=== PATIENT | female | born 1980 | race Caucasian/White ===

== ENCOUNTER 2016-09-23 11:06 | Emergency (ER) | payer BC ==
[2016-09-23 11:28] VITALS: TEMP 99.2
--- NOTE | 2016-09-23 11:36 | ED.PDOC ---
History of Present Illness - General Chief Complaint: Abdominal Pain Stated Complaint: diarrhea,abd pain Time Seen by Provider: 09/23/16 11:09 Source: patient Exam Limitations: no limitations - History of Present Illness Initial Comments: This 36 y/o female with history of dm2 and htn stated that she started having dull intermittent abdominal pains 15 hours ago after eating supper last night stating able to sleep last night but this am had one watery diarrhea with worsening of abdominal pains.She was seen initially at her md's office but advised to be checked here. Timing/Duration: other - 15 hours ago Severity: moderate Improving Factors: nothing Worsening Factors: nothing Associated Symptoms: loss of appetite Allergies/Adverse Reactions: Allergies Cefazolin [From Ancef] Allergy (Verified 10/14/14 18:38) Ciprofloxacin [From Cipro] Allergy (Verified 09/23/16 11:29) Penicillins Allergy (Verified 09/23/16 11:29) Home Medications: Ambulatory Orders Amlodipine Besylate 2.5 mg PO DAILY 02/06/13 Furosemide [Lasix] 20 mg PO DAILY 02/06/13 Lisinopril 10 mg PO BID 02/06/13 Omeprazole [Prilosec] 40 mg PO DAILY 02/06/13 SAXaglipitin [Onglyza] 5 mg PO DAILY 02/06/13 Spironolactone [Aldactone] 25 mg PO DAILY 02/06/13 Colestipol HCl 1 gm PO DAILY 09/23/16 Estradiol 0.1 mg TD WKLY 09/23/16 Hyoscyamine Sulfate [Levsin] 0.125 mg PO Q6HRS PRN #14 tab 09/23/16 Tramadol HCl 50 mg PO Q6HRS PRN #14 tab 09/23/16 Review of Systems - Review of Systems Constitutional: States: no symptoms reported EENTM: States: no symptoms reported Respiratory: States: no symptoms reported Cardiology: States: no symptoms reported Gastrointestinal/Abdominal: States: see HPI Genitourinary: States: no symptoms reported Musculoskeletal: States: no symptoms reported Skin: States: no symptoms reported Neurological: States: no symptoms reported Endocrine: States: no symptoms reported Hematologic/Lymphatic: States: no symptoms reported Past Medical History (General) - Patient Medical History Hx Congestive Heart Failure: No Hx Hypertension: Yes Hx Diabetes: Yes Hx Cancer: No Hx Hepatitis C: No Surgical History: cholecystectomy, Hysterectomy Other Surgeries:: hysterectomy,lithotripsy,CTS,ankle,knee - Vaccination History Hx Influenza Vaccination: No - Social History Hx Tobacco Use: No Hx Alcohol Use: No - Activities of Daily Living Patient Lives Alone: - family - Female History Patient is a Female of Child Bearing Age (10 -59 yrs old): No Patient : No Family Medical History - Family History Father Living Status: Still Living Hx Family Hypertension: Yes Hx Family Diabetes: Yes Physical Exam - Physical Exam General Appearance: Alert, No apparent distress Eye Exam: bilateral normal Ears, Nose, Throat: hearing grossly normal, normal ENT inspection, normal pharynx Neck: non-tender, full range of motion, supple Respiratory: chest non-tender, lungs clear, normal breath sounds, no respiratory distress Cardiovascular/Chest: normal peripheral pulses, regular rate, rhythm, no edema, no gallop, no JVD, no murmur Peripheral Pulses: radial,right: 2+, radial,left: 2+ Gastrointestinal/Abdominal: normal bowel sounds, soft, no organomegaly, tenderness - mid abdomen no peritoneal signs Back Exam: normal inspection, no CVA tenderness, no vertebral tenderness Extremity: normal range of motion, non-tender Neurologic: no motor/sensory deficits, alert, normal mood/affect, oriented x 3 Skin Exam: normal color, warm/dry Lymphatic: no adenopathy Progress - Results/Orders Results/Orders: 09/23/16 11:38 URINALYSIS Stat 09/23/16 11:40 CALCIUM Stat HEPATIC FUNCTION PANEL Stat LIPASE Stat Laboratory Results WBC 12.0 K/mm3 (4.8-10.8) H 09/23/16 11:40 RBC 5.06 M/mm3 (4.20-5.40) 09/23/16 11:40 Hgb 14.4 gm/dL (12.0-16.0) 09/23/16 11:40 Hct 43.1 % (36.0-47.0) 09/23/16 11:40 MCV 85.2 fl (81.0-99.0) 09/23/16 11:40 MCH 28.5 pg (27.0-31.0) 09/23/16 11:40 MCHC 33.4 g/dL (33.0-37.0) 09/23/16 11:40 RDW 13.4 % (11.5-14.5) 09/23/16 11:40 Plt Count 426 K/mm3 (130-400) H 09/23/16 11:40 MPV 6.9 fl (7.40-10.4) L 09/23/16 11:40 Absolute Neuts (auto) 9.50 K/uL (1.8-6.8) H 09/23/16 11:40 Absolute Lymphs (auto) 1.40 K/uL (1.0-3.4) 09/23/16 11:40 Absolute Monos (auto) 1.00 K/uL (0.2-0.8) H 09/23/16 11:40 Absolute Eos (auto) 0.10 K/uL (0.0-0.4) 09/23/16 11:40 Absolute Basos (auto) 0.10 K/uL (0.0-0.1) 09/23/16 11:40 Neutrophils % 79.1 % (42.0-78.0) H 09/23/16 11:40 Lymphocytes % 11.8 % (20.0-50.0) L 09/23/16 11:40 Monocytes % 8.1 % (2.0-9.0) 09/23/16 11:40 Eosinophils % 0.4 % (1.0-5.0) L 09/23/16 11:40 Basophils % 0.6 % (0.0-2.0) 09/23/16 11:40 Sodium 140 mmol/L (135-145) 09/23/16 11:40 Potassium 3.9 mmol/L (3.6-5.0) 09/23/16 11:40 Chloride 104 mmol/L (101-111) 09/23/16 11:40 Carbon Dioxide 22 mmol/L (21-31) 09/23/16 11:40 Anion Gap Cancelled 09/23/16 11:40 BUN 11 mg/dL (7-18) 09/23/16 11:40 Creatinine 0.50 mg/dL (0.6-1.3) L 09/23/16 11:40 BUN/Creatinine Ratio Cancelled 09/23/16 11:40 Random Glucose 116 mg/dL (70-105) H 09/23/16 11:40 Serum Osmolality Cancelled 09/23/16 11:40 Globulin Cancelled 09/23/16 11:40 Albumin/Globulin Ratio Cancelled 09/23/16 11:40 - EKG/XRAY/CT CT Ordered: Yes - abd/pelvis with contrast-mesenteric adenitis no acute abnormality noted Departure - Departure Clinical Impression: Abdominal pain of unknown etiology, Watery diarrhea Time of Disposition: 15:13 Disposition: Discharge to Home or Self Care Condition: Good Departure Forms: ED Discharge - Pt. Copy, Patient Portal Self Enrollment Instructions: DI for Abdominal Pain-Adult, Diarrhea, Probiotics May Decrease Intensity and Duration of Diarrhea Due to Infection Referrals: Henry Marley III, MD [Primary Care Provider] - 1-2 Weeks Prescriptions: Hyoscyamine Sulfate [Levsin] 0.125 mg PO Q6HRS PRN #14 tab PRN Reason: Abdominal Cramping Tramadol HCl 50 mg PO Q6HRS PRN #14 tab PRN Reason: Pain Home Medications: Ambulatory Orders Amlodipine Besylate 2.5 mg PO DAILY 02/06/13 Furosemide [Lasix] 20 mg PO DAILY 02/06/13 Lisinopril 10 mg PO BID 02/06/13 Omeprazole [Prilosec] 40 mg PO DAILY 02/06/13 SAXaglipitin [Onglyza] 5 mg PO DAILY 02/06/13 Spironolactone [Aldactone] 25 mg PO DAILY 02/06/13 Colestipol HCl 1 gm PO DAILY 09/23/16 Estradiol 0.1 mg TD WKLY 09/23/16 Hyoscyamine Sulfate [Levsin] 0.125 mg PO Q6HRS PRN #14 tab 09/23/16 Tramadol HCl 50 mg PO Q6HRS PRN #14 tab 09/23/16 Additional Instructions: Avoid greasy,spicy foods until better.
[2016-09-23] MEDS ORDERED: LACTATED RINGERS 1,000 ML IVS ONE (11:38)
[2016-09-23] MEDS ORDERED: PROMETHAZINE HCL INJ 25 MG/ML VIAL IM ONE (11:39)
[2016-09-23] MEDS ORDERED: MORPHINE SULFATE INJ 10 MG/ML VIAL IV ONE (11:40)
[2016-09-23 15:48] VITALS: BP 99/59; O2SAT 99
--- NOTE | 2016-09-27 00:46 | CT ---
EXAM DESCRIPTION: Abdomen/Pelvis w/Contrast CLINICAL HISTORY: Acute onset of abdominal pain, no fever. COMPARISON: None. TECHNIQUE: CT of the abdomen and pelvis was performed with IV contrast. Multiple axial images and multiplanar reconstructions were generated. FINDINGS: Lung bases: The visualized lung bases are clear. Solid organs: The liver, spleen, pancreas, kidneys, and adrenal glands are normal. Gallbladder has been removed. Gastrointestinal: The stomach, small intestine, and large intestine are normal. The appendix is normal. No free fluid or free air. Vascular: Normal. Lymph nodes: Multiple lymph nodes seen within the root of the mesentery. These have become more prominent than when compared to the prior study. Musculoskeletal and soft tissues: No destructive osseous lesions are present. Urinary bladder and pelvic organs: The urinary bladder is normal. The patient is status post hysterectomy. IMPRESSION: 1. The patient is status post cholecystectomy. 2. Increased number of lymph nodes seen within the root of the mesentery when compared to prior study. This finding is again indeterminate as these are not enlarged, but can be seen in the setting of mesenteric adenitis. 3. No inflammatory changes on today's exam to account for patient's pain. Electronically signed by: Marito Zuniga MD 09/23/2016 1:34 PM PACKING FLOOR WORKER
== END 2016-09-23 15:48 | disposition home or self-care (01) ==
LOC: ER 11:06
DX: R10.9 Unspecified abdominal pain (principal); R19.7 Diarrhea, unspecified; E11.9 Type 2 diabetes mellitus without complications; I10 Essential (primary) hypertension; Z79.899 Other long term (current) drug therapy; Z88.0 Allergy status to penicillin; Z88.3 Allergy status to other anti-infective agents
CPT/HCPCS: 36415; 74177; 80048; 80076; 81001; 82310; 83690; 85025; J2270; J2550; J7120

== ENCOUNTER → 2016-12-06 | Outpatient (CLI) | payer BC ==
--- NOTE | 2016-12-06 12:49 | CT ---
EXAM DESCRIPTION: CT ABDOMEN AND PELVIS WITH CONTRAST CLINICAL HISTORY: ABN FINDINGS ON XRAY COMPARISON: September 23, 2016 TECHNIQUE: CT of the abdomen and pelvis are performed during IV bolus administration of 100 mL of Isovue 300. Oral contrast was not utilized. This exam was performed according to our departmental dose-optimization program, which includes automated exposure control, adjustment of the mA and/or kV according to patient size and/or use of iterative reconstruction technique. FINDINGS: The lung bases are clear without effusion or infiltrate. Previous numerous small normal lymph nodes at the root of the mesentery are less prominent than previously seen and felt to be within the limits of normal. New posterior mediastinal or retroperitoneal lymphadenopathy is not apparent. Diffuse mild fatty replacement of the liver is unchanged without focal cyst or mass. The spleen and pancreas are normal and the gallbladder is surgically absent without ductal dilation. A fluid-filled stomach and mildly distended fluid-filled proximal small bowel is little changed from prior study with more normal-appearing and caliber of mid and distal small bowel and colon. A small normal appendix is again noted. No acute retroperitoneal or intra-abdominal inflammatory process is seen. The kidneys normally enhance with slightly prominent extrarenal pelvis on each side with without evidence of obstruction or mass or cyst. The bladder is incompletely distended. Uterus is surgically absent and no adnexal masses or free abdominal fluid or air is seen. The anterior abdominal wall is unremarkable. The bony structures are unremarkable in the retroperitoneum including the aorta and vena cava are normal. IMPRESSION: 1. Surgical absence of the gallbladder with normal biliary ductal system and diffuse mild fatty replacement of the liver. 2. Essentially normal appearance of the mesentery with no significant mesenteric adenopathy or evidence of retroperitoneal mass or abnormality. 3. Surgical absence of the uterus with no inflammatory changes within the abdomen or pelvis. Electronically signed by: Dann German MD 12/06/2016 12:49 PM CDT
== END | disposition home or self-care (01) ==
LOC: CT 07:48
PROVIDERS: ATTEND Internal Medicine Gastroenterology
DX: R93.3 Abnormal findings on diagnostic imaging of other parts of digestive tract (principal)

== ENCOUNTER → 2017-06-21 | Outpatient (CLI) | payer BC ==
--- NOTE | 2017-06-24 01:37 | US ---
Procedure: US LIVER Exam Date: 06/21/2017 Ordering Provider: JOSE MARRERO Clinical Indication: ELEVATED LFTS Comparison: 12/06/2016 Technique: Real-time ultrasonography was obtained over the right upper quadrant and health and safety representative images were recorded. Findings: The liver is echogenic consistent with fatty infiltration. No solid or cystic hepatic masses. The extrahepatic common duct measures 4.2 mm. No intrahepatic or extrahepatic biliary dilation. The gallbladder has been removed. No ascites in the abdomen. No hydronephrosis in the right kidney. Visualized pancreas is unremarkable. Impression: 1. Hepatic steatosis. 2. Prior cholecystectomy. Electronically signed by: Gen Saleh MD 06/24/2017 1:36 AM HOTHOUSE WORKER
== END | disposition home or self-care (01) ==
LOC: US 09:48
PROVIDERS: ATTEND Family Medicine
DX: R94.5 Abnormal results of liver function studies (principal)

== ENCOUNTER → 2017-07-19 | Outpatient (CLI) | payer BC ==
--- NOTE | 2017-07-19 16:47 | MRI ---
EXAM DESCRIPTION: Knee,Right CLINICAL HISTORY: KNEE PAIN COMPARISON: None Available. TECHNIQUE: MRI of the right knee is performed according to our usual protocol with multiplanar multi sequence imaging. FINDINGS: MRI the right knee shows a small right knee joint effusion. Assessment of the articular surfaces shows extensive grade 2/3 chondrosis in the medial and patellofemoral compartments of the knee joint. No grade 4 chondrosis is observed. Lateral compartment well preserved. Cruciate and collateral ligaments intact. Menisci intact. IMPRESSION: Significant medial and patellofemoral chondrosis with likely related joint effusion Electronically signed by: Brock Ruiz MD 07/19/2017 4:45 PM QUALITY CONTROL ASSISTANT
== END | disposition home or self-care (01) ==
LOC: MRI 09:15
PROVIDERS: ATTEND Family Medicine
DX: M25.461 Effusion, right knee (principal)

== ENCOUNTER → 2018-09-27 | Outpatient (CLI) | payer BC | LOC: GMATM 10:39 | PROVIDERS: ATTEND Family Medicine | DX: A09 Infectious gastroenteritis and colitis, unspecified (principal) ==

== ENCOUNTER → 2018-12-01 | Outpatient (CLI) | payer BC | LOC: LAB.O 09:42 | PROVIDERS: ATTEND Internal Medicine Gastroenterology | DX: R19.7 Diarrhea, unspecified (principal) ==

== ENCOUNTER → 2019-03-02 | Outpatient (CLI) | payer BC | LOC: LAB.O 14:06 | PROVIDERS: ATTEND Internal Medicine Gastroenterology | DX: R19.7 Diarrhea, unspecified (principal) ==

== ENCOUNTER → 2019-04-06 | Outpatient (CLI) | payer BC | LOC: LAB.O 11:52 | PROVIDERS: ATTEND Internal Medicine Gastroenterology | DX: R10.84 Generalized abdominal pain (principal); R19.7 Diarrhea, unspecified ==

== ENCOUNTER → 2019-07-18 | Outpatient (CLI) | payer BC ==
--- NOTE | 2019-07-18 17:28 | MRI ---
MRI right shoulder without contrast INDICATION: Shoulder pain no specific injury initial encounter TECHNIQUE: Noncontrast MR imaging right shoulder standard protocol FINDINGS: Subscapularis is intact. Long head bicep is intact. Mild AC joint osteoarthrosis. Mild tendinopathy supraspinatus and infraspinatus without rupture or retraction. Mild subacromial and subdeltoid bursitis. There is intramuscular edema indicating strain or denervation muscle belly of the supraspinatus. This can be seen with nerve inflammation such as [place] as well. Correlate with weakness. EMG may be considered if this differential is a consideration. Minimal grade 1 marbling symmetrically throughout the rotator cuff muscle bellies. No advanced atrophy. Minimal interstitial fissuring and tendinosis distal supraspinatus IMPRESSION: Intramuscular edema supraspinatus muscle belly indicating strain/mild interstitial tear or nerve inflammation/denervation see above discussion Mild subacromial and subdeltoid bursitis Rotator cuff tendinopathy with mild interstitial partial tear chronic insertional supraspinatus near graft mild AC joint osteoarthrosis No bicep rupture or dislocation Electronically signed by: Jacob Edward MD 07/18/2019 5:26 PM [facility]
== END ==
LOC: MRI 07:53
PROVIDERS: ATTEND Family Medicine
DX: S46.811A Strain of other muscles, fascia and tendons at shoulder and upper arm level, right arm, initial encounter (principal); M75.51 Bursitis of right shoulder; M19.011 Primary osteoarthritis, right shoulder; M75.81 Other shoulder lesions, right shoulder

== ENCOUNTER → 2019-08-06 | Outpatient (CLI) | payer BC | LOC: LAB.O 12:11 | PROVIDERS: ATTEND Internal Medicine Gastroenterology | DX: K50.00 Crohn's disease of small intestine without complications (principal) ==

== ENCOUNTER → 2020-06-30 | Outpatient (CLI) | payer BC | LOC: LAB.O 12:15 | PROVIDERS: ATTEND Internal Medicine Gastroenterology | DX: K50.00 Crohn's disease of small intestine without complications (principal) ==